=== PATIENT | male | born 1930 ===

== ENCOUNTER 2017-09-10 07:14 | Emergency (ER) | payer MEDICARE ==
[2017-09-10 07:36] VITALS: BP 111/54
--- NOTE | 2017-09-10 07:59 | UC ---
HPI Febrile Illness - HPI Summary HPI Summary: Loss of appetite for about three days. Fever started this morning. Some congestion and runny nose. He has a headache behind the eyes. Denies neck stiffness. No cough, no urinary symptoms but he did have a uti 1-2 years ago. No skin redness or tenderness. No ear or sinus pain or sore throat. No rigors. - History of Current Complaint Chief Complaint: UCGeneralIllness Time Seen by Provider: 09/10/17 07:38 Hx Obtained From: Patient, Family/Commissions Analyst Onset/Duration: Started Days Ago, Still Present Timing: Constant Initial Severity: Mild Current Severity: Moderate Pain Intensity: 0 Aggravating Factors: Nothing Alleviating Factors: OTC Medicine Associated Signs and Symptoms: Headache - Allergy/Home Medications Allergies/Adverse Reactions: Allergies Allergy/AdvReac Type Severity Reaction Status Date / Time No Known Allergies Allergy Verified 09/10/17 07:32 Home Medications: Home Medications Alendronate Sodium 70 mg PO WEEKLY 09/10/17 [History Confirmed 09/10/17] Ferrous Sulfate TAB* 325 mg PO DAILY 09/10/17 [History Confirmed 09/10/17] Ibuprofen TAB* [Advil TAB*] 400 mg PO Q6H PRN 09/10/17 [History Confirmed ] Ipratropium [place] 1 spray NS BID 09/10/17 [History Confirmed 09/10/17] levETIRAcetam TAB* [Keppra TAB*] 3 tab PO DAILY 09/10/17 [History Confirmed ] PMH/Surg Hx/FS Hx/Imm Hx Previously Healthy: No - Aortic stenosis. - Surgical History Surgical History: Yes Surgery Procedure, Year, and Place: GB; BI-INGUINAL HERNIA REPAIR; RUQ HERNIA REPAIR, CORNEAL IMPLANTS X2 - Family History Known Family History: Positive: Other - No related Fh of fever. - Social History Occupation: Retired Lives: With Family Alcohol Use: Daily Alcohol Amount: 2 beers every evening Substance Use Type: None Smoking Status (MU): Former Smoker Have You Smoked in the Last Year: No - Immunization History Most Recent Influenza Vaccination: 2011 Most Recent Tetanus Shot: unknown Review of Systems Constitutional: Fever, Chills ENT: Sinus Congestion All Other Systems Reviewed And Are Negative: Yes Physical Exam Triage Information Reviewed: Yes Appearance: Well-Appearing - Pleasant jovial. No distress., No Pain Distress, Well-Nourished Vital Signs: Initial Vital Signs Temp 99.7 F 09/10/17 07:27 Pulse 77 09/10/17 07:27 Resp 17 09/10/17 07:27 BP 111/54 09/10/17 07:27 Pulse Ox 95 09/10/17 07:27 Vital Signs Reviewed: Yes Eyes: Positive: Conjunctiva Clear ENT: Positive: Normal ENT inspection, Pharynx normal, TMs normal, Uvula midline. Negative: Hearing grossly normal, Pharyngeal erythema, TM bulging, TM dull, TM red, Tonsillar swelling, Tonsillar exudate, Trismus, Muffled voice, Sinus tenderness Neck: Positive: Supple, Nontender, No Lymphadenopathy. Negative: Nuchal Rigidity - full rom of the neck without stiffness. Respiratory: Positive: Lungs clear, Normal breath sounds, No respiratory distress, No accessory muscle use. Negative: Respiratory distress, Decreased breath sounds, Accessory muscle use, Crackles, Rhonchi, Stridor, Wheezing Cardiovascular: Positive: Pulses Normal, Brisk Capillary Refill, Murmur:Sys: Grade _?_/ - 3/6 aortic window murmur.. Negative: Tachycardia Abdomen Description: Positive: No Organomegaly, Soft. Negative: CVA Tenderness (R), CVA Tenderness (L), Distended, Guarding Neurological: Positive: Alert, Muscle Tone Normal. Negative: Fatigued, Lethargic, Unresponsive Psychological: Positive: Normal Response To Family, Age Appropriate Behavior Skin: Negative: rashes Course/Dx - Course Course Of Treatment: Fever with mild congestion. No confusion or nuchal rigidity. No significant stigmata of meningitis/encephalitis. We will eval for for UTI. No recent tick exposure or erythema migrans. Pt has hx of lymes disease. He may want to be tested in 4-6 weeks to be sure. He and agree to return here or to ED for any worsening symptoms. - Diagnoses Clinic Provider Diagnoses: febrile illness. possible uti Discharge - Sign-Out/Discharge Documenting (check all that apply): Discharge/Admit/Transfer - Discharge Plan Condition: Good Disposition: HOME Prescriptions: Cephalexin CAP* [Keflex CAP*] 500 mg PO TID #30 cap Patient Education Materials: Aortic Stenosis (ED), Fever in Adults (ED) Referrals: Sulaiman Ralph DO [Primary Care Provider] - 1 Day - Billing Disposition and Condition Condition: GOOD Disposition: Home
[2017-09-10] MEDS ORDERED: cefTRIAXone VIAL(*) 1,000 MG VIAL IM ONE (08:20)
[2017-09-10] MEDS ORDERED: Lidocaine 2% PF * 5 ML VIAL INJ ONE (08:21)
--- NOTE | 2017-09-10 08:29 | RAD ---
INDICATION: Fever. Chills. Headache. Hypertension. COMPARISON: June 20, 2017 TECHNIQUE: Dual energy PA and routine lateral views of the chest were obtained. REPORT: Elevated lung volumes and chronic mild prominence of interstitial markings. Unchanged mild blunting of the lateral RIGHT costophrenic angle which may reflect pleural parenchymal scarring or a small pleural effusion. Negative for pneumothorax. Mild cardiomegaly. Unremarkable central pulmonary vasculature and mediastinal contours. Gallbladder fossa level surgical clips. IMPRESSION: Stigmata of chronic obstructive pulmonary disease. Mild blunting of the lateral RIGHT costophrenic angle which may reflect pleural parenchymal scarring or a small pleural effusion. No compelling evidence for pneumonia.
[2017-09-10] MEDS ORDERED: Lidocaine 1%* 5 ML VIAL ONE (08:36)
[2017-09-10] MEDS ORDERED: Lidocaine 1% INJ* 10 MG/ML 30 ML SDV INJ ONE (08:39)
== END 2017-09-10 09:11 | disposition home or self-care (01) ==
LOC: UCCORT 07:14
DX: R50.9 Fever, unspecified (principal); Z87.891 Personal history of nicotine dependence
CPT/HCPCS: 71046; 81003; 87086; 96372; 99212; G0463; J0696